=== PATIENT | male | born 1945 | race Caucasian/White ===

== ENCOUNTER 2018-08-05 07:35 | Emergency (ER) | payer MEDICARE ==
[2018-08-05] MEDS ORDERED: Ondansetron ODT TAB* 4 MG PO ONE (08:33)
--- NOTE | 2018-08-05 08:51 | UC ---
Abdominal Pain Male HPI - HPI Summary HPI Summary: Pt presetns with 3 days right side abdominal pain, nause and vomiting. Pt states yesterday ate pasta at noon. at 3pm pt with increased pain and vomiting. States settled last evening and ate again at midnight. This am mild nausea, no vomiting. Pt with back pain and abdominal pain. no fever, chills. No cp, sob. no diarrhea, no hematuria no h//o similar pt does not ahve PCP No meds pt took Tylenol pm with little improvement - History of Current Complaint Chief Complaint: UCGeneralIllness Stated Complaint: RIGHT SIDE PAIN,STOMACCH ACHE,LOSS OF APPETITE Time Seen by Provider: 08/05/18 08:06 Pain Intensity: 5 - Allergies/Home Medications Allergies/Adverse Reactions: Allergies Allergy/AdvReac Type Severity Reaction Status Date / Time No Known Allergies Allergy Verified 08/05/18 07:51 Home Medications: Home Medications Acetaminophen/Diphenhydramine [Acetaminophen/Diphenhydra 25-500 mg] 1 tab PO Q6H PRN 08/05/18 [History Confirmed 08/05/18] O.T.C. Prostate Supplement 1 tab PO DAILY 08/05/18 [History] PMH/Surg Hx/FS Hx/Imm Hx Previously Healthy: Yes - no pcp - Surgical History Surgical History: None - Family History Known Family History: Negative: Hypertension, Diabetes - Social History Occupation: Retired Lives: Alone Alcohol Use: None Substance Use Type: None Smoking Status (MU): Former Smoker Length of Time of Smoking/Using Tobacco: Some Day Smoker for 3 Years When Did the Patient Quit Smoking/Using Tobacco: ~1967 - Immunization History Most Recent Tetanus Shot: 03/11/13 Review of Systems Constitutional: Negative Gastrointestinal: Abdominal Pain, Vomiting, Other - right cva All Other Systems Reviewed And Are Negative: Yes Physical Exam - Summary Physical Exam Summary: Vital Signs Reviewed: Yes A+Ox3, no distress Eyes: Conjunctiva Clear, IVANA. EOM intact and full ENT: Hearing grossly normal TM x 2 clear, mmoist, uvula midline, no exudate, no erythema Neck: Positive: Supple Respiratory: Positive: No respiratory distress, No accessory muscle use + CTA throughout no w/r Cardiovascular: RRR nl s1, s2 no m/r CBT <2 sec abd soft + BS nd +TTP RUQ no guarding, no rebound, no CVA Musculoskeletal Exam: NATION x 4 without difficulty Strength Intact, ROM Intact Neurological: Positive: Alert, + sensation throughout Psychological: Positive: Normal Response To Family Skin: Positive: no rash, no ecchymosis Triage Information Reviewed: Yes Vital Signs: Initial Vital Signs Temp 98.4 F 08/05/18 07:47 Pulse 88 08/05/18 07:47 Resp 18 08/05/18 07:47 BP 115/84 08/05/18 07:47 Pulse Ox 98 08/05/18 07:47 Diagnostics - Radiology No standard instances Radiology Interpretation Completed By: Radiologist - Patient Name: THAO CUEVAS Medical Record#: [id number] Ordering Physician: Sulma Burrows MD Acct.#: [id number] : 1945 Age: 73 Sex: M Location: [facility] Exam Date: 08/05/18832 ADM Status: REG ER Order Information: US ABDOMEN LIMITED Accession Number: [id number] CPT: 26005 Indication: Right upper quadrant pain. Real- time sonography of the right upper quadrant was performed. The liver measures 14.6 cm in length. No focal lesions or intrahepatic duct dilatation is noted. The gallbladder demonstrates no calcified gallstones. No pericholecystic fluid or wall thickening is noted. The right kidney measures 13.4 x 6.2 x 6.3 cm with moderate degree of right hydronephrosis. A definitive calculi is not identified. The pancreas head, neck and proximal body demonstrates no mass or pancreatic duct dilatation. Aorta and inferior vena cava are unremarkable. Ureteral jets are not identified in the urinary bladder. IMPRESSION: No evidence of cholelithiasis or biliary duct dilatation. Moderate right hydronephrosis and hydroureter. Ureteral jets are identified in the urinary bladder. < Electronically signed by Ligia Lynch MD in OV> 08/05/18913 Dictated By: Ligia Lynch MD Dictated Date/Time: 08/05/18913 Transcribed Date/Time: 08/05/18907 Copy to: CC:Sulma Burrows MD; No Primary Care Phys,NOPCP Imaging - [facility] - [facility] [id number] [place] [phone] ph ([phone]) ph ([phone]) ph ([phone]) This report is only to be considered final once signed by the Provider(s) as displayed in the "<Electronically Signed by >" field (s). Absence of a signature indicates the report is in a draft status and still needs to be finalized. In the event this document was created by someone other than the signing Provider, the individual initiating the document will be listed in the "Entered by:" or "Dictated by:" zarate. 1 of Re-Evaluation - Re-Evaluation First Eval Comment: reviewed us with pt. will check ct. pt continues to decline analgeisa. nausea improved Second Eval Comment: reviewed CT. pt with hydro b/l kidneys. 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 will send pt to ED at [facility] - pt refusing [facility]. will checkc BMP. Dr. Talavera accepting. Pt in agreement Abd Pain Male Course/Dx - Course Course Of Treatment: Pt with 3 days progressive abd pain, nausea no fevers. pt with RUQ pain on exam. eill check urine and ultrasound. will give zofran. pt declined analgesia - Differential Dx/Clinical Impression Provider Diagnoses: renal colic. hydronephrosis Discharge - Sign-Out/Discharge Documenting (check all that apply): Patient Departure All imaging exams completed and their final reports reviewed: Yes - Discharge Plan Condition: Stable Disposition: HOME-RECOMMEND TO ED Patient Education Materials: Kidney Stones (ED), Hydronephrosis (ED) Referrals: No Primary Care Phys,NOPCP [Primary Care Provider] - Additional Instructions: The doctor that evaluated you today thinks that you need additional testing that can be completed the emergency department. It is recommended that you go directly to emergency department for further evaluation. They are expecting you. This evaluation included blood work and discussion with a kidney stone specialist. This testing will be directed and decided by the provider that evaluats you at the emergency department. If pain becomes worse, you feel lightheaded, you have uncontrolled vomiting, or you have any other concerns while you are being driven to emergency department as recommended to pullover and contact 911. - Billing Disposition and Condition Condition: STABLE Disposition: Home-Recommend to ED
--- NOTE | 2018-08-05 09:17 | RAD ---
Indication: Right upper quadrant pain. Real-time sonography of the right upper quadrant was performed. The liver measures 14.6 cm in length. No focal lesions or intrahepatic duct dilatation is noted. The gallbladder demonstrates no calcified gallstones. No pericholecystic fluid or wall thickening is noted. The right kidney measures 13.4 x 6.2 x 6.3 cm with moderate degree of right hydronephrosis. A definitive calculi is not identified. The pancreas head, neck and proximal body demonstrates no mass or pancreatic duct dilatation. Aorta and inferior vena cava are unremarkable. Ureteral jets are not identified in the urinary bladder. IMPRESSION: No evidence of cholelithiasis or biliary duct dilatation. Moderate right hydronephrosis and hydroureter. Ureteral jets are identified in the urinary bladder.
--- NOTE | 2018-08-05 10:06 | RAD ---
INDICATION: RIGHT hydronephrosis on ultrasound. Question stone. COMPARISON: August 05, 2018 ultrasound. TECHNIQUE: Multidetector CT images were obtained from the lung bases to the ischial tuberosities. No oral contrast administered. Assessment of the visceral limited without IV contrast. Multiplanar reformation. REPORT: VISUALIZED INFERIOR THORAX: Small calcified granuloma at the RIGHT lower lobe. Mild RIGHT basilar linear atelectasis. LIVER / GALLBLADDER / PANCREAS / SPLEEN: Unremarkable unenhanced liver, gallbladder, spleen. Mildly atrophic pancreas without suspicious finding. ALIMENTARY TRACT: No CT abnormality of the upper GI or small bowel. The appendix is not visualized. Mild diverticulosis of the colon without findings of acute diverticulitis. Small volume of free pelvic fluid. Negative for free air. Small fat-containing umbilical and bilateral inguinal hernias without inflammatory change. MESENTERIC: Unremarkable. ADRENAL / GENITOURINARY: Normal adrenal glands. Severe RIGHT hydroureteronephrosis is traced 0.5 cm proximal RIGHT ureteral stone at the L4 level. Moderate RIGHT perinephric and periureteral inflammatory stranding. Moderate LEFT pelvicaliectasis appears secondary to chronic ureteropelvic junction stenosis. Negative for LEFT perinephric stranding. Partially distended urinary bladder with multiple dependent stones measuring up to 1.3 cm. Prostatomegaly and asymmetric prominence of the RIGHT seminal vesicle with lobular contour. RETROPERITONEAL: Negative for lymphadenopathy. VASCULAR: Negative for aortoiliac aneurysm. Physiologic partial distention of the IVC. BONES: Negative for suspicious focal osseous lesions. Polyarticular degenerative arthropathy. Grade 1 degenerative L1-L2, L3-L4 retrolisthesis and grade 1 degenerative L4-L5 anterolisthesis. SOFT TISSUE: Unremarkable. IMPRESSION: #. Severe RIGHT hydroureteronephrosis is traced 0.5 cm proximal RIGHT ureteral stone at the L4 level. #. Moderate LEFT pelvicaliectasis appears secondary to chronic ureteropelvic junction stenosis. #. Partially distended urinary bladder with multiple dependent stones measuring up to 1.3 cm. #. Prostatomegaly and asymmetric prominence of the RIGHT seminal vesicle with lobular contour. Correlate with clinical assessment.
[2018-08-05 10:12] VITALS: BP 111/62
== END 2018-08-05 10:41 | disposition home health service (06) ==
LOC: UCCORT 07:35
DX: Z87.891 Personal history of nicotine dependence (principal)
CPT/HCPCS: 74176; 76705; 81003; 99212; A9270-GY; G0463